=== PATIENT | male | born 1950 | race Caucasian/White ===

== ENCOUNTER 2018-06-28 13:19 | Emergency (ER) | payer MEDICARE, OTHER ==
[2018-06-28] MEDS ORDERED: Sulfamethoxazole/Trimethoprim 800-160 MG Tab PO ONE (14:42)
--- NOTE | 2018-06-28 14:42 | EDM.PDOC ---
ED HPI GENERAL MEDICAL PROBLEM - General Chief Complaint: Genitourinary Problem Stated Complaint: BLOOD IN URINE Time Seen by Provider: 06/28/18 13:29 Source of Information: Reports: Patient, Family (), RN Notes Reviewed History Limitations: Reports: No Limitations - History of Present Illness INITIAL COMMENTS - FREE TEXT/NARRATIVE: The patient states that he developed gross hematuria this morning. No dysuria. He does report urinary frequency today. No urinary urgency. No recent fever. No suprapubic or low back pain. No prior similar symptoms. The patient reports that he has a history of prostate cancer, status post a prostatectomy in [place] [address] Walsh. The patient's PCP is Dr. Menchaca. Bladder Pain Score (Numeric/FACES): 3 - Related Data Allergies Allergy/AdvReac Type Severity Reaction Status Date / Time No Known Allergies Allergy Verified 06/28/18 13:32 Home Meds: Home Meds Aspirin [Halfprin] 81 mg PO DAILY 06/28/18 [History] PARoxetine [Paxil CR] 12.5 mg PO DAILY 06/28/18 [History] Sildenafil [Revatio] 10 mg PO DAILY 06/28/18 [History] Sulfamethoxazole/Trimethoprim [Bactrim Ds Tablet] 1 tab PO Q12H #14 tablet 06/28 [Rx] atorvaSTATin [Lipitor] 80 mg PO DAILY 06/28/18 [History] hydroCHLOROthiazide [Hydrochlorothiazide] 25 mg PO BID 06/28/18 [History] Past Medical History Cardiovascular History: Reports: High Cholesterol, Hypertension Respiratory History: Reports: Sleep Apnea (nightly CPAP 9) Gastrointestinal History: Reports: Hemorrhoids Psychiatric History: Reports: Anxiety, Depression Endocrine/Metabolic History: Reports: Obesity/BMI 30+ Oncologic (Cancer) History: Reports: Prostate - Past Surgical History GI Surgical History: Reports: Colonoscopy Male Surgical History: Reports: Prostatectomy (November [address] Walsh) Social & Family History - Tobacco Use Smoking Status *Q: Former Smoker Years of Tobacco use: 7 Packs/Tins Daily: 0.8 Month/Year Tobacco Last Used: Quit 1978 - Caffeine Use Caffeine Use: Reports: Coffee, Tea - Alcohol Use Alcohol Use History: Yes Alcohol Use Frequency: Socially - Recreational Drug Use Recreational Drug Use: No - Living Situation & Occupation Living situation: Reports: , with Spouse Occupation: Employed (Semi-retired AdverseEvents) ED ROS GENERAL - Review of Systems Review Of Systems: ROS reveals no pertinent complaints other than HPI. ED EXAM, RENAL/ - Physical Exam Exam: See Below Exam Limited By: No Limitations General Appearance: Alert, WD/WN, No Apparent Distress Eye Exam: Bilateral Eye: EOMI, Normal Inspection Ears: Normal External Exam, Hearing Grossly Normal Nose: Normal Inspection Throat/Mouth: Normal Inspection, Normal Lips, Normal Voice, No Airway Compromise Head: Atraumatic, Normocephalic Neck: Normal Inspection, Full Range of Motion Respiratory/Chest: No Respiratory Distress, Lungs Clear, Normal Breath Sounds, No Accessory Muscle Use Cardiovascular: Normal Peripheral Pulses, Regular Rate, Rhythm, No Gallop, No JVD, No Murmur, No Rub GI/Abdominal: Normal Bowel Sounds, Soft, Non-Tender (including suprapubically), No Organomegaly, No Distention, No Abnormal Bruit, No Mass, Other (Obese) (Male) Exam: Deferred Rectal (Males) Exam: Deferred Back Exam: Normal Inspection, Full Range of Motion. No: CVA Tenderness (L), CVA Tenderness (R) Extremities: Normal Inspection, Normal Range of Motion, No Pedal Edema, Normal Capillary Refill Neurological: Alert, Oriented, Normal Cognition, No Motor/Sensory Deficits Psychiatric: Normal Affect Skin Exam: Warm, Dry, Intact, Normal Color, No Rash Course - Vital Signs Last Recorded V/S: Last Vital Signs Temp 36.9 C 06/28/18 13:29 Pulse 73 06/28/18 13:29 Resp 20 06/28/18 13:29 BP 184/100 H 06/28/18 13:29 Pulse Ox 97 06/28/18 13:29 - Orders/Labs/Meds Orders: Active Orders 24 hr Category Date Time Status CULTURE URINE [RM] Stat Lab 06/28/18 13:50 Received Labs: Laboratory Tests 06/28/18 Range/Units 13:50 Urine Color Brown H (Yellow) Urine Appearance Turbid H (Clear) Urine pH 6.0 (5.0-8.0) Ur Specific [place] > or = 1.030 (1.005-1.030) Urine Protein 3+ H (Negative) Urine Glucose (UA) Negative (Negative) Urine Ketones Trace H (Negative) Urine Occult Blood 3+ H (Negative) Urine Nitrite Positive H (Negative) Urine Bilirubin 2+ H (Negative) Urine Urobilinogen 2.0 H (0.2-1.0) Ur Leukocyte Esterase 3+ H (Negative) Urine RBC >100 H (0-5) /hpf Urine WBC 20-30 H (0-5) /hpf Ur Epithelial Cells 0-5 (0-5) /hpf Urine Bacteria Moderate H (FEW) /hpf Urine Mucus Not seen (FEW) /hpf Meds: Medications Discontinued Medications Generic Name Dose Route Start Last Admin Trade Name Fredemarco PRN Reason Stop Dose Admin Trimethoprim/Sulfamethoxazole 1 tab 06/28/18 14:42 06/28/18 14:47 Septra Ds PO 06/28/18 14:43 1 tab ONETIME ONE Administration - Re-Assessments/Exams Free Text/Narrative Re-Assessment/Exam: 06/28/18 14:43 The patient's urinalysis is consistent with a UTI. A urine culture has been ordered. Because of the patient's relatively recent prostatectomy, I wanted to be certain which antibiotic and duration is preferred., Case discussed with [facility] at 14:32. Case then discussed with Dr. De Luna, partner of Dr. Walsh, at 14:39. Due to developing resistance, he recommended that we avoid fluoroquinolones. He recommended that the patient be started on a 7-day course of oral Bactrim, to be modified as the urine culture dictates. He does not feel that the patient needs to follow-up with Dr. Walsh right away, however, he did recommended that the patient contact Dr. Walsh's office to notify them of his gross hematuria, as Dr. Walsh will likely want the patient to schedule a cystoscopy. 06/28/18 14:57 The above was discussed with the patient and his . Departure - Departure Time of Disposition: 14:57 Disposition: Home, Self-Care 01 Condition: Good Clinical Impression: UTI (urinary tract infection), Gross hematuria - Discharge Information *PRESCRIPTION DRUG MONITORING PROGRAM REVIEWED*: Not Applicable *COPY OF PRESCRIPTION DRUG MONITORING REPORT IN PATIENT MADELINE: Not Applicable Prescriptions: Sulfamethoxazole/Trimethoprim [Bactrim Ds Tablet] 1 tab PO Q12H #14 tablet Referrals: James Menchaca MD [Primary Care Provider] - Cruz Walsh MD [Ordering Only Provider] - Forms: ED Department Discharge Additional Instructions: You were seen in the emergency room for bloody urine and frequent urination today. Workup in the ER included a urinalysis, which confirmed that you have a urinary tract infection. A sample of your urine has been sent for a urine culture. The case was discussed with Dr. Walsh's partner, Dr. De Luna. He recommended that we start you on the antibiotic Bactrim. A prescription for Bactrim has been sent to the [facility], located in the [facility] grocery store. Take one tablet every 12 hours, starting early tomorrow morning, 06/29/2018, as prescribed. Finish the entire prescription unless told otherwise by a doctor. Stay adequately hydrated. It does not really matter what fluid you drink. Dr. De Luna recommended that you contact the office of Dr. Walsh Saturday morning, and let them know that you have a urinary tract infection with blood in your urine (gross hematuria). Dr. De Luna anticipates that Dr. Walsh will want to schedule you for a cystoscopy. If any other problems, please do not hesitate to return to the ER. - My Orders Last 24 Hours: My Active Orders 06/28/18 13:50 CULTURE URINE [RM] Stat - Assessment/Plan Last 24 Hours: My Active Orders 06/28/18 13:50 CULTURE URINE [RM] Stat
== END 2018-06-28 15:15 | disposition home or self-care (01) ==
LOC: JD.ED 13:19
DX: N39.0 Urinary tract infection, site not specified (principal); I10 Essential (primary) hypertension; E66.9 Obesity, unspecified; Z87.891 Personal history of nicotine dependence
CPT/HCPCS: 81001; 87086; 87088; 87186; 99283; A9270